=== PATIENT | female | born 1995 | race Caucasian/White ===

== ENCOUNTER → 2018-04-19 09:07 | Outpatient (CLI) | payer OTHER, MEDICAID, SELFPAY ==
[2018-03-07 15:01] VITALS: BMI 23.3
[2018-04-19 10:24] LABS: hCG Titer Quant., Serum 834 mIU/mL (<9 non-preg)
== END ==
PROVIDERS: Referring Provider Obstetrics & Gynecology; Visit Provider Obstetrics & Gynecology
DX: O20.0 Threatened abortion (principal)
CPT/HCPCS: 36415; 84702; 86850; 86900

== ENCOUNTER → 2018-04-20 12:24 | Outpatient (CLI) | payer OTHER, MEDICAID, SELFPAY ==
[2018-03-07 15:01] VITALS: BMI 23.3
[2018-04-20 13:45] LABS: hCG Titer Quant., Serum 1250 mIU/mL (<9 non-preg)
== END ==
PROVIDERS: Referring Provider Obstetrics & Gynecology; Visit Provider Obstetrics & Gynecology
DX: O20.0 Threatened abortion (principal)
CPT/HCPCS: 36415; 84702

== ENCOUNTER 2018-04-22 10:03 | Emergency (ER) | payer OTHER, MEDICAID, SELFPAY ==
[2018-03-07 15:01] VITALS: BMI 23.3
[2018-04-22 10:04] VITALS: BP 133/75; PULSE 107; RESP 15; TEMP 36.2; O2SAT 100; BMI 26.4
--- NOTE | 2018-04-22 10:17 | US_ITS ---
STUDY: FIRST TRIMESTER OBSTETRICAL ULTRASOUND REASON FOR EXAM: Female, 23 years old. Bleeding. LMP: Unknown. TECHNIQUE: Transvaginal TECHNICAL QUALITY: Adequate. PRIOR ULTRASOUND: None. FINDINGS: There is visualization of a single gestational sac in a normal intrauterine position. The mean sac diameter (MSD) measures 0.5 cm, indicating an estimated gestational age (EGA) of 5 weeks, 0 days. The gestational sac shape is within normal limits. There is a visualized yolk sac. The yolk sac measures 0.2 cm. The placenta is non-visualized. There is no demonstrated embryo ( pole). The estimated gestation age (EGA) by US is less than 5 weeks, 0 days. The uterus measures 6.9 x 4.4 x 3.6 cm. There is no demonstrated uterine fibroid. The cervix is closed. The right ovary measures 3.0 x 2.6 x 1.8 cm. There are multiple follicles of the right ovary without a dominant cyst. There is no visualized right adnexal mass or complex lesion. The left ovary measures 2.2 x 1.8 x 1.7 cm. There are multiple follicles of the left ovary without a dominant cyst. There is no visualized left adnexal mass or complex lesion. There is no fluid in the cul de sac. US/Transvaginal w/Preg US IMPRESSION: Intrauterine gestational sac with yolk sac. There is no pole nor cardiac activity. Electronically Signed: Michael Gordon MD at 12:51 EST , Service support ,
--- NOTE | 2018-04-22 10:19 | ED.VISSUMM ---
- ER Visit Summary Date of Service: 04/22/18 Chief Complaint: Bleeding in History of Present Illness: The patient is a 23 F who presents the emergency room bleeding. She tells me that last week she had. She thought it was a regular. But on Wednesday she took a test. At that time her bleeding had stopped. Her bleeding returned on Wednesday she states and she went to [facility] where she had a hCG level of [address] Philippe's office and had a repeat hCG level on Wednesday. She states that her bleeding had resolved from the Wednesday episode but has now returned today and is heavier with clots. Ab0. Physical Examination: Afebrile vital signs are stable Gen: Well-nourished well-developed Head: Normocephalic atraumatic Eyes: Perrl EOMI ENT: TMs clear no rhinorrhea moist mucous membranes Neck: Supple no lymphadenopathy no JVD nontender CVS: Regular rate rhythm no murmurs normal S1-S2 Respiratory: No distress clear to auscultation bilaterally chest nontender Abdomen: Soft nontender nondistended normal bowel sounds no masses Back: Nontender Extremity: Nontender no edema Skin: Normal color no rash Neuro: alert orientated ?3 CN II-XII intact normal strength sensation reflexes gait cerebellar Psych: Normal affect normal mood Test Results: Patient is a positive. Quantitative hCG is 2500. Pelvic ultrasound demonstrates a gestational sac. Emergency Department Course and Treatment: I reviewed the workup evaluation with her SUPERVISOR DRAPERY HANGING Dr. Philippe. Patient will be discharged home to have follow-up return if worsening or concerns. Impression: 1. Threatened miscarriage This note was generated with BitInstant dictation software. It may contain incorrect words, spelling, and punctuation that were not noted in review of the chart prior to signing ED Disposition - Plan for ED Patient: Disposition: Home or Assisted Living Instructions: ED Miscarriage Poss Referrals: Tisha Philippe MD [STAFF PHYSICIAN] -
[2018-04-22 10:47] LABS: Hematocrit 39.9 % (37-47)
[2018-04-22 11:39] LABS: hCG Titer Quant., Serum 2500 mIU/mL (<9 non-preg)
--- NOTE | 2018-04-22 13:15 | NURSING ---
DR REMA DE LA PAZ
[2018-04-22 13:43] VITALS: BP 115/72; RESP 14
== END 2018-04-22 13:45 | disposition home or self-care (01) ==
PROVIDERS: Emergency Provider Emergency Medicine
DX: O20.0 Threatened abortion (principal)
CPT/HCPCS: 76817; 84702; 85014; 85018; 86900; 86901; 99283

== ENCOUNTER → 2018-05-17 13:25 | Outpatient (CLI) | payer OTHER, MEDICAID, SELFPAY ==
[2018-05-17 13:21] VITALS: BMI 26.4
[2018-05-17 14:05] LABS: Absolute Lymphocyte Count 1.47 X10^3/ul (0.83-4.51); Absolute Neutrophil Count 6.1 X10^3/uL (2.0-7.7); Basophil# 0.01 X10^3/uL; Basophil% 0.1 % (0-1); Eosinophil# 0.16 X10^3/uL; Eosinophils% 1.9 % (0-5); Hematocrit 40.1 % (37-47); Hemoglobin 13.5 g/dl (12.0-15.0); Lymphocyte # 1.47 X10^3/ul (4.0); Lymphocyte % 17.4 % (19-41); Mean Corp Hgb Conc 33.7 g/gl (32-36); Mean Corpuscular Hgb 29.3 pg (27.0-32.0); Mean Platelet Vol. 8.8 fl (6.2-12.0); Monocyte# 0.69 X10^3/uL; Monocyte% 8.2 % (0-10); Neutrophil # 6.09 X10^3/uL (2.7-7.7); Neutrophil % 72.3 % (47-70); Platelet Count 309 K/mm3 (150-450); RBC Distribution Width CV 12.9 % (11.6-14.6); RBC Distribution Width SD 39.9 fl (35.1-43.9); Red Blood Count 4.61 M/mm3 (4.2-5.4); White Blood Count 8.4 K/mm3 (4.4-11.0)
[2018-05-17 14:08] LABS: POSITIVE COUNT NO; POSITIVE DIFFERENTIAL NO; POSITIVE MORPHOLOGY NO
[2018-05-17 15:16] LABS: HIV - WCH Non-Reactive (Nonreactive); Rubella IgG 139.3 IU/mL
[2018-05-17 19:10] LABS: Chlamydia Trachomatis by PCR Negative (Negative); Neisserai gonorrhoeae by PCR Negative (Negative); Probe Check PASS; Sample Adequacy Control PASS; Specimen Processing Control PASS
[2018-05-18 11:48] LABS: HEPATITIS B SURFACE AG Negative (Negative)
[2018-05-20 01:30] LABS: Rapid Plasmin Reagin (RPR) NONREACTIVE (NONREACTIVE)
[2018-05-23 12:10] LABS: HPV Reflexed? NOT INDICATED
== END ==
PROVIDERS: Referring Provider Obstetrics & Gynecology; Visit Provider Obstetrics & Gynecology
DX: Z34.90 Encounter for supervision of normal pregnancy, unspecified, unspecified trimester (principal); Z12.4 Encounter for screening for malignant neoplasm of cervix
CPT/HCPCS: 36415; 85025; 86592; 86703; 86762; 86850; 86900; 87086; 87088; 87340; 87491; 87591; 87624; 88175; G0145

== ENCOUNTER → 2018-05-25 11:18 | Outpatient (CLI) | payer OTHER, MEDICAID, SELFPAY ==
[2018-05-17 13:21] VITALS: BMI 26.4
== END ==
PROVIDERS: Visit Provider Obstetrics & Gynecology
DX: Z34.81 Encounter for supervision of other normal pregnancy, first trimester (principal)

== ENCOUNTER → 2018-06-21 | Outpatient (CLI) | payer OTHER, MEDICAID, SELFPAY ==
[2018-06-15 08:36] VITALS: BMI 26.4
== END | disposition home or self-care (01) ==
PROVIDERS: Referring Provider Nurse Practitioner Women's Health; Visit Provider Nurse Practitioner Women's Health
DX: N39.0 Urinary tract infection, site not specified (principal)
CPT/HCPCS: 87086

== ENCOUNTER → 2018-08-04 12:32 | Outpatient (CLI) | payer MEDICAID, SELFPAY ==
[2018-08-04 12:30] VITALS: BMI 26.4
[2018-08-04 12:59] LABS: ROM Internal Control Test YES-OK TO RESULT pt. (Internal QC); ROM Patient Test Negative (Negative)
== END ==
PROVIDERS: Referring Provider Obstetrics & Gynecology; Visit Provider Obstetrics & Gynecology
DX: N89.8 Other specified noninflammatory disorders of vagina (principal)
CPT/HCPCS: 84112

== ENCOUNTER 2018-08-27 09:35 | Outpatient (CLI) | payer OTHER, MEDICAID, SELFPAY ==
[2018-08-10 10:40] VITALS: BMI 26.4
[2018-08-27 09:55] VITALS: BMI 27.0
--- NOTE | 2018-08-28 07:34 | OB.TRI.PN ---
Progress Notes Date of Service: 08/28/18 Progress Note: decreased movememnt fht 150s feeling movment now dc home reassuring status
== END 2018-08-27 10:35 | disposition home or self-care (01) ==
LOC: WPOUT 09:42 → WP 09:43
PROVIDERS: Referring Provider Obstetrics & Gynecology; Visit Provider Obstetrics & Gynecology
DX: O36.8190 Decreased fetal movements, unspecified trimester, not applicable or unspecified (principal)
CPT/HCPCS: 59050; 99218; G0378

== ENCOUNTER → 2018-09-28 11:27 | Outpatient (CLI) | payer OTHER, MEDICAID, SELFPAY ==
[2018-09-28 10:52] VITALS: BMI 27.0
[2018-09-28 12:02] LABS: Absolute Lymphocyte Count 1.43 X10^3/uL (0.83-4.51); Absolute Neutrophil Count 7.5 X10^3/uL (2.0-7.7); Basophil# 0.04 X10^3/uL; Basophil% 0.4 % (0-1); Eosinophil# 0.11 X10^3/uL; Eosinophils% 1.1 % (0-5); Hematocrit 32.5 % (37-47); Hemoglobin 10.8 g/dL (12.0-15.0); Lymphocyte # 1.43 X10^3/ul (4.0); Lymphocyte % 14.4 % (19-41); Mean Corp Hgb Conc 33.2 g/dL (32-36); Mean Corpuscular Hgb 29.9 pg (27.0-32.0); Monocyte# 0.76 X10^3/uL; Monocyte% 7.7 % (0-10); NRBC Flagged by Analyzer 0 % (0-5); Neutrophil # 7.52 X10^3/uL (2.7-7.7); Neutrophil % 75.7 % (47-70); Platelet Count 237 K/mm3 (150-450); RBC Distribution Width CV 13.8 % (11.6-14.6); Red Blood Count 3.61 M/mm3 (4.2-5.4); White Blood Count 9.9 K/mm3 (4.4-11.0)
[2018-09-28 12:21] LABS: Glucose Challenge Gest 1H 50g 72 mg/dL (70-140)
== END ==
PROVIDERS: Referring Provider Obstetrics & Gynecology; Visit Provider Obstetrics & Gynecology
DX: Z34.93 Encounter for supervision of normal pregnancy, unspecified, third trimester (principal); Z3A.28 28 weeks gestation of pregnancy
CPT/HCPCS: 36415; 82950; 85025

== ENCOUNTER 2018-10-19 18:55 | Outpatient (CLI) | payer OTHER, MEDICAID, SELFPAY ==
[2018-10-12 10:50] VITALS: BMI 27.0
[2018-10-19 19:10] VITALS: BMI 28.8
[2018-10-19 19:54] LABS: ROM Internal Control Test YES-OK TO RESULT pt. (Internal QC); ROM Patient Test Negative (Negative)
--- NOTE | 2018-10-19 21:40 | OB.TRI.PN_ITS ---
Progress Notes Date of Service: 10/19/18 Progress Note: false labor negative rom plus fht 140 moderate variability reactive no decelerations category I tracing [place]: irregular cervix closed a/p false labor dc home cat I tracing reactive nst Laboratory Studies: Laboratory Tests 10/19/18 Range/Units 19:15 Vag Amniotic Fld Detect Negative (Negative) - Problem List (1) False labor Status: Acute Comment: 10/19- neg rom plus cervix closed Multi Select Codes - Urinary/Genital Urinary/Genital CPT Codes: 51999-13 non-stress test Interp
== END 2018-10-19 20:35 | disposition home or self-care (01) ==
LOC: WPOUT 19:02 → WP 19:03
PROVIDERS: Referring Provider Obstetrics & Gynecology; Visit Provider Obstetrics & Gynecology
DX: O47.9 False labor, unspecified (principal); Z3A.00 Weeks of gestation of pregnancy not specified
CPT/HCPCS: 59025; 59050; 84112; 99218; G0378

== ENCOUNTER 2018-11-13 10:08 | Outpatient (CLI) | payer OTHER, MEDICAID, SELFPAY ==
[2018-11-08 10:57] VITALS: BMI 28.8
[2018-11-13 10:18] VITALS: BMI 29.7
[2018-11-13 10:53] LABS: ROM Internal Control Test YES-OK TO RESULT pt. (Internal QC); ROM Patient Test Negative (Negative); Record Kit Lot#, ROM+ J8255
--- NOTE | 2018-11-13 12:21 | OB.TRI.PN ---
Progress Notes Date of Service: 11/13/18 Progress Note: Patient presents for triage evaluation secondary to questionable loss of fluid and some contractions FHT: 130 Moderate variability reactive no decelerations category I tracing [place]: no regular Contractions Assessment and plan: labor reactive NST, reassuring maternal and status patient discharged to home to follow-up in office. See problem list details for additional plan information. Laboratory Studies: Laboratory Tests 11/13/18 Range/Units 10:20 Vag Amniotic Fld Detect Negative (Negative) - Problem List (1) Threatened labor Status: Acute Multi Select Codes - Urinary/Genital Urinary/Genital CPT Codes: 64280-87 non-stress test Interp
== END 2018-11-13 11:15 | disposition home or self-care (01) ==
LOC: WPOUT 10:12 → WP 10:15
PROVIDERS: Referring Provider Obstetrics & Gynecology; Visit Provider Obstetrics & Gynecology
DX: O60.03 Preterm labor without delivery, third trimester (principal); Z3A.00 Weeks of gestation of pregnancy not specified
CPT/HCPCS: 59025; 59050; 84112; 99218; G0378

== ENCOUNTER → 2018-11-23 | Outpatient (CLI) | payer MEDICAID, SELFPAY ==
[2018-11-23 09:05] VITALS: BMI 29.7
== END | disposition home or self-care (01) ==
PROVIDERS: Referring Provider Obstetrics & Gynecology; Visit Provider Obstetrics & Gynecology
DX: Z34.93 Encounter for supervision of normal pregnancy, unspecified, third trimester (principal); Z3A.36 36 weeks gestation of pregnancy
CPT/HCPCS: 87077; 87081; 87186

== ENCOUNTER → 2018-11-30 | Outpatient (CLI) | payer OTHER, MEDICAID, SELFPAY ==
[2018-11-30 10:29] VITALS: BMI 29.7
[2018-11-30 11:29] LABS: ROM Internal Control Test YES-OK TO RESULT pt. (Internal QC); ROM Patient Test Negative (Negative); Record Kit Lot#, ROM+ J8255
== END | disposition home or self-care (01) ==
LOC: LABSPEC 11:05
PROVIDERS: Visit Provider Nurse Practitioner Women's Health
DX: N89.8 Other specified noninflammatory disorders of vagina (principal)
CPT/HCPCS: 84112

== ENCOUNTER 2018-12-07 20:00 | Outpatient (CLI) | payer MEDICAID, SELFPAY ==
[2018-12-05 16:04] VITALS: BMI 29.7
[2018-12-07 20:56] VITALS: BMI 30.7
[2018-12-07 21:35] VITALS: RESP 18
--- NOTE | 2018-12-08 05:06 | OB.TRI.NOTE ---
History of Present Illness Date of Service: 12/07/18 Was patient seen by the physician?: Yes Reason For Visit: Decreased movement Date of Service: 12/07/18 Final DELANEY: 12/21/18 Final DELANEY Source: US <20 weeks Gestational age: 38 Weeks and 0 Days History of Present Illness: 23 yo female presents for CC of dec movement for NST. Active baby noted as she begins the NST and she is now aware of movement. Allergies Penicillins Allergy (Verified 12/07/18 20:57) Hives Physical Exam Vitals: Vital Signs Resp 18 12/07/18 21:35 General: Alert, Oriented x3, Cooperative, No apparent distress HEENT: Atraumatic, EOMI Abdomen: Soft, Gravid NST - FHR Rate Baby A Baseline: 140-150s to accels up to 180-190 avg variability Variability:: Moderate Accelerations:: 15 x 15 Decelerations:: None NST Reactive:: Yes, Appropriate for gestational age FHR Category:: Category I Uterine Activity:: Irreg UCs Impression/Plan 38 wk decreased movement. NST reactive and active movement now noted. Home after NST Keep ofc appt as planned.
== END 2018-12-07 21:35 | disposition home or self-care (01) ==
LOC: WPOUT 20:08 → WP 20:08
PROVIDERS: Visit Provider Obstetrics & Gynecology
DX: O36.8130 Decreased fetal movements, third trimester, not applicable or unspecified (principal); Z3A.38 38 weeks gestation of pregnancy
CPT/HCPCS: 59025; 59050; 99218; G0378

== ENCOUNTER 2018-12-22 04:47 | Inpatient (IN) | payer OTHER, MEDICAID, SELFPAY ==
[2018-12-13 15:36] VITALS: BMI 30.7
[2018-12-22 05:13] VITALS: BMI 31.4
[2018-12-22] MEDS: Lactated Ringers 1,000 ML 50 ML IV (05:15)
[2018-12-22] MEDS: Lactated Ringers 500 ML 999 ML IV (05:15)
[2018-12-22 05:29] LABS: Absolute Lymphocyte Count 2.23 X10^3/uL (0.83-4.51); Absolute Neutrophil Count 7.5 X10^3/uL (2.0-7.7); Basophil# 0.06 X10^3/uL; Basophil% 0.5 % (0-1); Eosinophil# 0.12 X10^3/uL; Eosinophils% 1.1 % (0-5); Hematocrit 33.6 % (37-47); Lymphocyte # 2.23 X10^3/ul (4.0); Lymphocyte % 20.4 % (19-41); Mean Corp Hgb Conc 32.7 g/dL (32-36); Mean Corpuscular Hgb 28.4 pg (27.0-32.0); Mean Corpuscular Volume 86.8 fL (81-99); Mean Platelet Vol. 9.2 fl (6.2-12.0); Monocyte# 0.96 X10^3/uL; Monocyte% 8.8 % (0-10); NRBC Flagged by Analyzer 0 % (0-5); Neutrophil # 7.47 X10^3/uL (2.7-7.7); Neutrophil % 68.3 % (47-70); Platelet Count 211 K/mm3 (150-450); RBC Distribution Width CV 14.1 % (11.6-14.6); RBC Distribution Width SD 44.3 fl (35.1-43.9); Red Blood Count 3.87 M/mm3 (4.2-5.4); White Blood Count 10.9 K/mm3 (4.4-11.0)
[2018-12-22] MEDS: Oxytocin 30 units/NS 500 ml 30 UNITS/500 ML IV.SOLN 334 UNITS IV (06:38)
[2018-12-22] MEDS: Methylergonovine 0.2 MG/ML Ampul IM (06:41)
[2018-12-22] MEDS: Ibuprofen 600 MG Tablet PO (13:08)
[2018-12-22 13:15] VITALS: BP 113/63; PULSE 72; RESP 16; TEMP 36.1
[2018-12-22 13:23] VITALS: PULSE 72; RESP 16
--- NOTE | 2018-12-22 13:43 | NURSING ---
charting by CF, N reviewed. nurse in room while assessment was done and agreed upon with patient care nursing assistant.
[2018-12-22 16:35] VITALS: BP 111/55; PULSE 75; RESP 12; TEMP 36.1
[2018-12-22 19:17] VITALS: BP 129/66; PULSE 85; RESP 16; TEMP 36.1; O2SAT 99
[2018-12-22] MEDS: Acetaminophen 500 MG Tablet 1000 MG PO (20:11)
[2018-12-22 23:45] VITALS: BP 117/58; PULSE 90; RESP 16; TEMP 36.3
[2018-12-23 04:40] VITALS: BP 119/68; PULSE 81; RESP 16; TEMP 36.4; O2SAT 99
[2018-12-23] MEDS: Senna/Docusate Sodium 1 Tablet PO (04:40)
[2018-12-23] MEDS: Ibuprofen 600 MG Tablet PO (04:40)
[2018-12-23 07:50] VITALS: BP 114/57; PULSE 72; RESP 16; TEMP 36.4
--- NOTE | 2018-12-23 10:50 | CASEMGMT ---
Social Work Assessment Labor and Delivery Unit Date of Referral: 12.22.2018 Time of Referral: 2115 Referred By: Dr. De La Rosa Date of Intervention: 12.23.2018 Time of Intervention: 1049 Reason for Referral: maternal history of anxiety History obtained from: medical records, mother of baby (MOB) Hali Fiore, and father of baby (FOB) Murphy Fiore. Household composition: MOB, FOB, and children live in a trailer they rent from a cousin. Home situation is safe and adequate. Patient's parent/guardian status: MOB age 23 is marred to FOB and now the couple have two children. Minor children include Stephanie (born 11.20.2018) and baby Bernie (born 12.22.2018). Did speak privately with MOB and MOB denies any form of abuse in relationship with FOB. No safety concerns at home. Medical History: MOB is G2, P1 to 2 after delivering Bernie. care starting at 13 weeks and adequate thereafter. MOB breastfed older children until 7 months into this . Baby Bernie was born weighing 8 pounds 10 ounces. 8 and 9 at 1 and 5 minutes of life. Educational Status: MOB graduated high school. Currently enrolled in online school for a bachelor?s in psychology with only a year and a half left. No issues reading, writing, or with learning comprehension. Financial Status: JIMMY works fulltime as a [employer]. Supplies: MOB reports to have needed supplies including pack-n-play, car seat, clothing, diapers, wipes, is breast feeding and has a pump. Childcare/Caregiver(s): MOB with help from FOB and family. Transportation: No issues. Programs/Agencies Involved: Medicaid through [employer]. Verbally agrees to Help Me Grow referral. Children Services/Legal Issues: No past or present history. Behavioral Health Issues: Mental Health History: MOB reports history of anxiety after of Stephanie. MOB was treated with Zoloft for a short time and this seemed to help. MOB denies any history of suicidal ideation, planning, intent, or attempt. Substance Use History: MOB denies any history of substance use issues. No tobacco use. Family History: No maternal family history reported. JIMMY endorses having some anxiety himself. Drug Screens: No screening noted during care or at delivery. Family/Social Stressors: Both MOB and FOB are in enrolled in online college at this time. Maternal and paternal histories of anxiety, though through discussion both seem self-aware of their anxiety and are supportive to each other. Support Systems: MOB reports FOB is a good support. Both sets of parents are supportive, and MOB identifies her [id number] as one of the biggest supports to MOB. Depression/Shaken Baby/Safe Sleeping: Information given on shaken baby prevention and safe sleeping. Educated to mood and anxiety disorders, risk factors present and importance of seeking out help and support should symptoms surface. Educated to treatment options of medication and counseling, as well as to some online chats for both mothers and fathers. ASSESSMENT: Met with MOB and FOB together and then with MOB alone near the end where an [place] Depression Screen was administered. Score was a 2, not indicative of current depression. During private time, MOB denies any form of abuse in relationship with FOB and reports that FOB is a good support to MOB. MOB and FOB both talkative, engaged in conversation with marriage and family social worker, and appearing interested in topics discussed. Both parents agreeable to having a Help Me Grow referral for added support. Report to have needed supplies and adequate support from the family. MOB reports understanding of importance of letting others know should MOB start to experience depression or anxiety in this period. MOB has history of treatment with Zoloft in the past and aware that this would be an option again. No voiced concerns by nursing staff regarding mother/child bonding or interactions. MOB attentive to baby during social work visit; held , was gentle, smiled and gazed at baby. MOB reports to feel she is bonding with baby and is excited. PLAN: MOB and baby to home when ready for discharge. Resources for home gong have been given including a general [facility] resources list, depression packet, information on shaken baby prevention, safe sleeping. Help Me Grow referral to be made. No other services requested or indicated. -HARPER Irving, LABOR RELATIONS DIRECTOR
[2018-12-23 13:50] VITALS: BP 118/56; PULSE 87; RESP 16; TEMP 36.4
[2018-12-23 20:00] VITALS: BP 132/83; PULSE 104; RESP 16; TEMP 36.5
[2018-12-23] MEDS: Acetaminophen 500 MG Tablet 1000 MG PO (20:59)
[2018-12-24 01:49] VITALS: BP 127/77; PULSE 77; RESP 16; TEMP 36.4
--- NOTE | 2018-12-24 04:25 | PCM.PN.OB ---
Subjective: doing well no complaints pain controlled no CP SOB N V ambulating well tolerating po lochia moderate, going well - Physical Exam Vitals/I&O's: Vital Signs Temp Pulse Resp BP Pulse Ox 97.5 F L 77 16 127/77 H 99 12/24/18 01:49 12/24/18 01:49 12/24/18 01:49 12/24/18 01:49 12/23/18 04:40 Oxygen Delivery Method Room Air Weight: 189 lb Body Mass Index (BMI) 31.4 Intake and Output for Last 24 Hours 12/22/18 12/23/18 12/24/18 23:59 23:59 23:59 Intake Total 1130.83 / 1130.83 Output Total 900 / 900 Balance 230.83 / 230.83 General: Alert, Oriented x3 Current Medications Acetaminophen (Tylenol) 1,000 mg PO Q8H PRN PRN PRN Reason: Pain Score 1-3 Last Admin: 12/23/18 20:59 Dose: 1,000 mg Documented by: Bisacodyl (Dulcolax) 10 mg RECTAL UD PRN PRN Reason: If no BM Citric Acid/Sodium Citrate (Bicitra) 30 ml PO X1 PRN PRN Reason: Section Dibucaine (Dibucaine) 1 applic TOPICAL TID PRN PRN; Protocol PRN Reason: Discomfort Hydrocortisone (Hytone) 1 applic TOPICAL TID PRN PRN; Protocol PRN Reason: Discomfort Lactated Ringer's () 500 mls @ 999 mls/hr IV .Q31M PRN PRN Reason: Epidural Last Infusion: 12/22/18 05:46 Dose: Infused Documented by: Ibuprofen (Motrin) 600 mg PO Q6H PRN PRN PRN Reason: Pain Score 1-3 Last Admin: 12/23/18 04:40 Dose: 600 mg Documented by: Methylergonovine Maleate (Methergine) 0.2 mg IM X1 PRN PRN Reason: Excess bleeding/uterine atony Last Admin: 12/22/18 06:41 Dose: 0.2 mg Documented by: Ondansetron HCl (Zofran) 4 mg IV Q4H PRN PRN PRN Reason: Nausea Senna/Docusate Sodium (Senokot-S, Ivette-Colace) 1 - 2 tablet PO DAILY PRN PRN PRN Reason: Constipation Last Admin: 12/23/18 04:40 Dose: 1 tablet Documented by: Simethicone (Mylicon) 80 mg PO HS PRN PRN Reason: Indigestion/Stomach pain Sodium Chloride () 5 - 15 ml IV UD PRN PRN Reason: SALINE FLUSH Medical Necessity - Tobacco Use Smoking Status: Never smoker Assessment/Plan All Active Problems (Last Reviewed 12/13/18 @ 15:35 by María Lopez) GBS (group B Streptococcus carrier), +RV culture, currently (Acute) General counseling and advice on contraceptive management (Acute) False labor (Acute) Iron (Fe) deficiency anemia (Acute) Low lying placenta nos or without hemorrhage, first trimester (Acute) History of oligohydramnios (Acute) Low grade squamous intraepithelial lesion (LGSIL) (Acute) (Acute) Supervision of normal (Acute) Genetic testing (Resolved) Threatened labor (Resolved) s/p PPD # 2 1. routine post delivery care 2. breast feeding- support given 3. rh positive 4. rubella immune
--- NOTE | 2018-12-24 04:26 | HP.PCM_ITS ---
- Problem List (1) GBS (group B Streptococcus carrier), +RV culture, currently Status: Acute (2) General counseling and advice on contraceptive management Status: Acute Comment: IUD 6 wk pp (3) History of oligohydramnios Status: Acute Comment: growth US 36 weeks (4) Iron (Fe) deficiency anemia Status: Acute Qualifiers: (5) Low grade squamous intraepithelial lesion (LGSIL) Status: Acute Comment: repeat pap in 1 year (6) Low lying placenta nos or without hemorrhage, first trimester Status: Acute Comment: resolved (7) Status: Acute Qualifiers: Comment: nipt screening- low risk gender reveal, declined carrier and ntd screening. normal anatomy (8) Supervision of normal Status: Acute Qualifiers: Comment: PRR DELANEY 12/21/18 girl PC Stephanie Stephen History Date of Admission: 11/19/16 Final DELANEY: 12/21/18 Final DELANEY Source: US <20 weeks Gestational age: 40 Weeks and 1 Days History of this : This is a 23 year-old, G 2P0 at 40 weeks gestational age presents IAL 6 cm dilated and delivered within an hour of presentation. she dneies any vb or lof admits good fm Allergies Penicillins Allergy (Verified 12/22/18 05:14) Hives Home Medications: Home Medications vitamin#30 30 mg iron-10 mg iron-folic acid 1 mg-omg3 capsule 1 tab PO DAILY cap 05/17/18 Smoking Status: Never smoker NST - FHR Rate Baby A Baseline: 130 Variability:: Moderate Accelerations:: 15 x 15 Decelerations:: None NST Reactive:: Yes FHR Category:: Category I Uterine Activity:: q2-4 History Past Pregnancies: Past Pregnancies previous term oligo IOL Labs: Mom's Labs & Results 12/22/18 12/22/18 05:15 05:15 WBC 10.9 RBC 3.87 L Hgb 11.0 L Hct 33.6 L MCV 86.8 MCH 28.4 MCHC 32.7 RDW Std Deviation 44.3 H RDW Coeff of Deborah 14.1 Plt Count 211 MPV 9.2 Immature Gran % (Auto) 0.900 Neut % (Auto) 68.3 Lymph % (Auto) 20.4 [place] % (Auto) 8.8 Eos % (Auto) 1.1 Baso % (Auto) 0.5 Absolute Neuts (auto) 7.5 Absolute Lymphs (auto) 2.23 Nucleated RBC % 0 Blood Type A POSITIVE Antibody Screen NEGATIVE Course Did the patient receive Yes care? Labs Blood Type: A RH: POSITIVE RPR/VDRL/Syphilis Nonreactive Rubella status Immune HbSAg Negative Date Done: 05/17/18 Chlamydia Negative Gonorrhea Negative HIV/AIDS Non-Reactive Group B Strep: Positive Current Obstetrical History Gestational Diabetes No Incompetent Cervix No Infertility No IUGR No Macrosomia No Hypertension/Pre-eclampsia No Placenta Previa/Abruption No PTL/PROM No Uterine anomaly No Oligohydramnios No Polyhydramnios No Multiple gestation No Past Medical History Asthma Yes: inhaler PRN Diabetes No Hypertension No Heart disease No Mitral valve prolapse No Neurologic/Seizure disorder/ No Migraines Kidney disease No Liver disease No Varicosities No Clotting disorders/Hx of DVT No Thyroid Dysfunction No Other medical diseases No Psychiatric disorders No Major trauma No Abnormal PAP smear No Sleep apnea No Mammogram in the last 2 years No Social History Marital Status: Alleged father rao Hx Smoking No Smoking Status Never smoker How long have you used n/a substances (years)? Expected Infant Delivery Method: Spontaneous Vaginal Review of Systems Constitutional: Denies: Fever, Malaise Eyes: Denies: Blurred vision, Vision Change HEENT: Denies: Head Aches, Visual Changes Cardiovascular: Denies: Chest Pain, Palpitations Respiratory: Denies: Cough, Shortness of Breath, Wheezing Gastrointestinal: Denies: Abdominal Pain, Diarrhea, Nausea, Vomiting Genitourinary: Denies: Dysuria, Hematuria Musculoskeletal: Denies: Joint Pain, Muscle pain Skin: Denies: Lesions, Rash Neurological: Denies: Blurred vision, Focal weakness, Headaches Psychiatric: Denies: Anxiety, Depression Endocrine: Denies: Heat/ Cold Intolerance Hematologic/ Lymphatic: Denies: Easy Bruising, Easy Bleeding Physical Exam Vitals: Vital Signs Temp Pulse Resp BP Pulse Ox 97.5 F L 77 16 127/77 H 99 12/24/18 01:49 12/24/18 01:49 12/24/18 01:49 12/24/18 01:49 12/23/18 04:40 General: Alert, Cooperative, No apparent distress HEENT: Atraumatic, Normocephalic. Negative for: Thyromegaly, Lymphadenopathy Cardiovascular: Regular rate Lungs: Normal air movement Abdomen: Soft, Non Tender, Gravid Neurological: Deep Tendon Reflexes 2+/4 and Symmetrical, Neuro grossly intact. Negative for: Clonus SANITARIAN INSPECTOR: Normal external genitalia. Negative for: Vulvar lesions Estimated gestational size: Appropriate for gestational size Presentation: Cephalic Assessment/Plan All Active Problems (Last Reviewed 12/13/18 @ 15:35 by María Lopez) GBS (group B Streptococcus carrier), +RV culture, currently (Acute) General counseling and advice on contraceptive management (Acute) False labor (Acute) Iron (Fe) deficiency anemia (Acute) Low lying placenta nos or without hemorrhage, first trimester (Acute) History of oligohydramnios (Acute) Low grade squamous intraepithelial lesion (LGSIL) (Acute) (Acute) Supervision of normal (Acute) Genetic testing (Resolved) Threatened labor (Resolved) ial 40 weeks delivered within an hour of presentation uncomplicated
--- NOTE | 2018-12-24 04:28 | PCM.OPRPT ---
Problem List (1) GBS (group B Streptococcus carrier), +RV culture, currently Status: Acute (2) General counseling and advice on contraceptive management Status: Acute Comment: IUD 6 wk pp (3) History of oligohydramnios Status: Acute Comment: growth US 36 weeks (4) Iron (Fe) deficiency anemia Status: Acute Qualifiers: (5) Low grade squamous intraepithelial lesion (LGSIL) Status: Acute Comment: repeat pap in 1 year (6) Low lying placenta nos or without hemorrhage, first trimester Status: Acute Comment: resolved (7) Status: Acute Qualifiers: Comment: nipt screening- low risk gender reveal, declined carrier and ntd screening. normal anatomy (8) Supervision of normal Status: Acute Qualifiers: Comment: PRR DELANEY 12/21/18 girl LUI Brown Stephen Vaginal Delivery Maternal Presentation: Active Labor ial precipitous delivery 40 weeks Amniotic Membrane Rupture Type: Artificial Amniotic Fluid Description: Clear Final DELANEY: 12/21/18 Gestational age: 40 Weeks and 1 Days Date of Procedure: 12/22/18 Pre-Operative Diagnosis: ial Post-Operative Diagnosis: same Surgery/ Procedure Performed: Spontaneous Vaginal Delivery Type of Anesthesia: None Description of Procedure: precipitous uncomplicated delayed cord clamping mild atony 400 EBL Presentation: IBIS Placental Delivery Description: Spontaneous Placenta Disposition: [facility] Cord Vessel Description: 3 Vessels Cord Entanglement: None Estimated Blood Loss: 400 A gender: Female Episiotomy Description: None Laceration: None Medications given after delivery: IV Pitocin Complications: None Multi Select Codes - Urinary/Genital Urinary/Genital CPT Codes: 08022 Vaginal Delivery [facility]
--- NOTE | 2018-12-24 04:31 | DCINST_ITS ---
Discharge Diet: No Restrictions Discharge Activity: Return to Normal Activity, May not drive while taking narcotic pain medications., May Shower May resume sexual activity in: 4-6 weeks Call your doctor if your incision/area has: Continuous Slow Oozing, Sudden Increased Bleeding, Increased Pain/ Swelling, Increased Redness, Foul Smelling Discharge Additional Instructions: If you experience any of the following, contact your healthcare provider. * Bleeding that soaks a pad every hour for 2 hours * Fever 100.4 or higher * Unrelieved incision or abdominal pain * Swelling, redness, discharge or bleeding from your incision or episiotomy site * Your incision begins to separate * Problems urinating (including inability to urinate or burning while urinating). * Visual changes * Severe headache * Flu-like symptoms * Pain or redness in one of both of your breasts * Pain, warmth, tenderness or swelling in your legs, especially the calf area * Frequent nausea and vomiting * Symptoms of depression or anxiety If you experience any of the following, call 911 or go to the nearest Emergency Room. * Chest pain * Problems breathing * Seizure activity * Partial or complete paralysis of a body part, slurred speech, weakness or drooping of the face, or a sudden inability to walk or hold your balance Allergies/Adverse Reactions: Allergies Penicillins Allergy (Verified 12/22/18 05:14) Hives Medications to take at Discharge vitamin#30 30 mg iron-10 mg iron-folic acid 1 mg-omg3 capsule 1 tab PO DAILY cap 05/17/18 Please Follow Up With: Tisha Philippe MD - [phone] When: Call to make an appointment with your doctor in 6 weeks. If you had elevated Blood pressure or 4th degree laceration you will need to be seen in 2 weeks. Primary Care Physician: Care Physician,No Primary [Primary Care Provider] - Test Results: Test results from this visit will be discussed in further detail at your follow- up appointment, if applicable.
--- NOTE | 2018-12-24 04:31 | PCM.DCVAG ---
Discharge Diet: No Restrictions Discharge Activity: Return to Normal Activity, May not drive while taking narcotic pain medications., May Shower May resume sexual activity in: 4-6 weeks Call your doctor if your incision/area has: Continuous Slow Oozing, Sudden Increased Bleeding, Increased Pain/ Swelling, Increased Redness, Foul Smelling Discharge Additional Instructions: If you experience any of the following, contact your healthcare provider. Bleeding that soaks a pad every hour for 2 hours Fever 100.4 or higher Unrelieved incision or abdominal pain Swelling, redness, discharge or bleeding from your incision or episiotomy site Your incision begins to separate Problems urinating (including inability to urinate or burning while urinating). Visual changes Severe headache Flu-like symptoms Pain or redness in one of both of your breasts Pain, warmth, tenderness or swelling in your legs, especially the calf area Frequent nausea and vomiting Symptoms of depression or anxiety If you experience any of the following, call 911 or go to the nearest Emergency Room. Chest pain Problems breathing Seizure activity Partial or complete paralysis of a body part, slurred speech, weakness or drooping of the face, or a sudden inability to walk or hold your balance Allergies/Adverse Reactions: Allergies Penicillins Allergy (Verified 12/22/18 05:14) Hives Medications to take at Discharge vitamin#30 30 mg iron-10 mg iron-folic acid 1 mg-omg3 capsule 1 tab PO DAILY cap 05/17/18 Please Follow Up With: Tisha Philippe MD - [phone] When: Call to make an appointment with your doctor in 6 weeks. If you had elevated Blood pressure or 4th degree laceration you will need to be seen in 2 weeks. Primary Care Physician: Care Physician,No Primary [Primary Care Provider] - Test Results: Test results from this visit will be discussed in further detail at your follow-up appointment, if applicable.
[2018-12-24 10:00] VITALS: BP 120/75; PULSE 93; RESP 16; TEMP 36.3
--- NOTE | 2018-12-24 11:55 | NURSING ---
1035 Discharged to home via wheelchair to car with baby in lap in carseat. Pt states she is so excited to get to go home and see her 2 year old daughter. States she is ready to be discharged and feels able to care for herself and her baby.
== END 2018-12-24 10:35 | disposition home or self-care (01) | DRG 806 ==
PROVIDERS: Admitting Provider Obstetrics & Gynecology; Referring Provider Obstetrics & Gynecology; Visit Provider Obstetrics & Gynecology
DX: O48.0 Post-term pregnancy (principal); O98.82 Other maternal infectious and parasitic diseases complicating childbirth; Z37.0 Single live birth; Z3A.40 40 weeks gestation of pregnancy; B95.1 Streptococcus, group B, as the cause of diseases classified elsewhere; O99.02 Anemia complicating childbirth; D50.9 Iron deficiency anemia, unspecified; O75.89 Other specified complications of labor and delivery
CPT/HCPCS: 59025; 59050; 84112; 85025; 86850; 86900; 86901; 99218; J7120; G0378

== ENCOUNTER → 2020-06-18 | Outpatient (CLI) | payer OTHER, MEDICAID, SELFPAY ==
[2020-06-18 14:53] VITALS: BMI 28.0
[2020-06-21 12:59] LABS: HPV Reflexed? NOT INDICATED
== END | disposition home or self-care (01) ==
LOC: LABSPEC 16:29
PROVIDERS: Referring Provider Nurse Practitioner Women's Health; Visit Provider Nurse Practitioner Women's Health
DX: Z12.4 Encounter for screening for malignant neoplasm of cervix (principal)
CPT/HCPCS: 88175; G0145

== ENCOUNTER → 2020-07-12 13:54 | Outpatient (CLI) | payer OTHER, MEDICAID, SELFPAY ==
[2020-07-12 13:40] VITALS: BMI 28.0
[2020-07-12 14:45] LABS: hCG Titer Quant., Serum 1038 mIU/mL (1-3)
== END ==
PROVIDERS: Referring Provider Obstetrics & Gynecology; Visit Provider Obstetrics & Gynecology
DX: N92.6 Irregular menstruation, unspecified (principal)
CPT/HCPCS: 36415; 84702

== ENCOUNTER → 2020-08-15 | Outpatient (CLI) | payer OTHER, MEDICAID, SELFPAY ==
[2020-08-15 09:22] VITALS: BMI 28.0
[2020-08-15 13:40] LABS: Amphetamine Urine VISTA NEGATIVE (<1000 ng/mL); Barbiturate Urine VISTA NEGATIVE (< 200 ng/mL); Benzodiazepine Urine VISTA NEGATIVE (< 200 ng/mL); Cocaine Urine VISTA NEGATIVE (< 300 ng/mL); Ecstacy Urine VISTA NEGATIVE (< 500 ng/mL); Methadone Urine VISTA NEGATIVE (< 300 ng/mL); PCP Urine VISTA NEGATIVE (< 25 ng/mL); THC Urine VISTA NEGATIVE (< 50 ng/mL); Vista UDS pH Range 5
[2020-08-17 03:06] LABS: Chlamydia By Nucleic Acid AMP Negative (Negative)
[2020-08-17 10:05] LABS: Gonococcus By Nucleic Acid AMP Negative (Negative)
== END | disposition home or self-care (01) ==
PROVIDERS: Referring Provider Obstetrics & Gynecology; Visit Provider Obstetrics & Gynecology
DX: Z34.90 Encounter for supervision of normal pregnancy, unspecified, unspecified trimester (principal); Z36.89 Encounter for other specified antenatal screening
CPT/HCPCS: 80307; 87086; 87088; 87491; 87591

== ENCOUNTER → 2020-08-19 12:16 | Outpatient (CLI) | payer OTHER, MEDICAID, SELFPAY ==
[2020-08-15 09:22] VITALS: BMI 28.0
[2020-08-19 13:28] LABS: NATERA MAILED SPECIMEN
[2020-08-19 13:33] LABS: Absolute Lymphocyte Count 2.11 X10^3/uL (0.83-4.51); Absolute Neutrophil Count 6.4 X10^3/uL (2.0-7.7); Basophil# 0.04 X10^3/uL; Basophil% 0.4 % (0-1); Eosinophil# 0.21 X10^3/uL; Eosinophils% 2.2 % (0-5); Hematocrit 39.1 % (37-47); Hemoglobin 13.1 g/dL (12.0-15.0); Lymphocyte # 2.11 X10^3/ul (0.83-4.51); Lymphocyte % 22.2 % (19-41); Mean Corp Hgb Conc 33.5 g/dL (32-36); Mean Corpuscular Hgb 28.7 pg (27.0-32.0); Mean Corpuscular Volume 85.7 fL (81-99); Mean Platelet Vol. 9.2 fl (6.2-12.0); Monocyte# 0.75 X10^3/uL; Monocyte% 7.9 % (0-10); NRBC Flagged by Analyzer 0 % (0-5); Neutrophil # 6.39 X10^3/uL (2.7-7.7); Neutrophil % 67.1 % (47-70); Platelet Count 354 K/mm3 (150-450); RBC Distribution Width CV 13.1 % (11.6-14.6); RBC Distribution Width SD 40.5 fl (35.1-43.9); Red Blood Count 4.56 M/mm3 (4.2-5.4); White Blood Count 9.5 K/mm3 (4.4-11.0)
[2020-08-19 14:47] LABS: HIV - WCH Non-Reactive (Nonreactive); Hepatitis B Surface Antigen Non-Reactive (Nonreactive); Hepatitis C Antibody Non-Reactive (Nonreactive); Rubella IgG Reactive (Nonreactive); Syphilis Antibodies Non-reactive
== END ==
PROVIDERS: Referring Provider Obstetrics & Gynecology; Visit Provider Obstetrics & Gynecology
DX: Z34.81 Encounter for supervision of other normal pregnancy, first trimester (principal)
CPT/HCPCS: 36415; 85025; 86703; 86762; 86780; 86803; 86850; 86900; 86901; 87340

== ENCOUNTER → 2020-12-23 13:45 | Outpatient (CLI) | payer OTHER, MEDICAID, SELFPAY ==
[2020-12-23 14:14] LABS: Absolute Neutrophil Count 7.2 X10^3/uL (2.0-7.7); Basophil# 0.02 X10^3/uL; Basophil% 0.2 % (0-1); Eosinophil# 0.23 X10^3/uL; Eosinophils% 2.3 % (0-5); Hematocrit 31.4 % (37-47); Hemoglobin 10.4 g/dL (12.0-15.0); Lymphocyte % 17.9 % (19-41); Mean Corp Hgb Conc 33.1 g/dL (32-36); Mean Corpuscular Hgb 28.7 pg (27.0-32.0); Mean Corpuscular Volume 86.5 fL (81-99); Mean Platelet Vol. 8.9 fl (6.2-12.0); Monocyte# 0.78 X10^3/uL; Monocyte% 7.7 % (0-10); NRBC Flagged by Analyzer 0 % (0-5); Neutrophil # 7.17 X10^3/uL (2.7-7.7); Neutrophil % 71.2 % (47-70); Platelet Count 273 K/mm3 (150-450); RBC Distribution Width CV 13.8 % (11.6-14.6); RBC Distribution Width SD 43.1 fl (35.1-43.9); Red Blood Count 3.63 M/mm3 (4.2-5.4); White Blood Count 10.1 K/mm3 (4.4-11.0)
[2020-12-23 14:27] LABS: Glucose Challenge Gest 1H 50g 83 mg/dL (70-140)
== END ==
PROVIDERS: Referring Provider Nurse Practitioner Women's Health; Visit Provider Nurse Practitioner Women's Health
DX: Z34.92 Encounter for supervision of normal pregnancy, unspecified, second trimester (principal); Z36.89 Encounter for other specified antenatal screening; Z3A.18 18 weeks gestation of pregnancy
CPT/HCPCS: 36415; 82950; 85025

== ENCOUNTER → 2021-02-17 | Outpatient (CLI) | payer OTHER, MEDICAID, SELFPAY | END | disposition home or self-care (01) | LOC: LABSPEC 16:56 | PROVIDERS: Visit Provider Obstetrics & Gynecology | DX: Z34.93 Encounter for supervision of normal pregnancy, unspecified, third trimester (principal) | CPT/HCPCS: 87077; 87081; 87186 ==

== ENCOUNTER 2021-02-28 11:05 | Inpatient (IN) | payer OTHER, MEDICAID, SELFPAY ==
[2021-02-28] VITALS (49 sets, daily range): BP systolic 98–158; BP diastolic 47–79; PULSE 78–203; TEMP 36.8–37.7; O2SAT 82–100; BMI 33.5
[2021-02-28 10:16] LABS: ROM Internal Control Test YES-OK TO RESULT pt. (Internal QC)
[2021-02-28 10:18] LABS: ROM Patient Test POSITIVE (Negative)
[2021-02-28] MEDS: Lactated Ringers 1,000 ML 50 ML IV (12:05)
[2021-02-28 12:19] LABS: Absolute Lymphocyte Count 1.35 X10^3/uL (0.83-4.51); Absolute Neutrophil Count 8.4 X10^3/uL (2.0-7.7); Basophil# 0.03 X10^3/uL; Basophil% 0.3 % (0-1); Eosinophil# 0.14 X10^3/uL; Eosinophils% 1.3 % (0-5); Hematocrit 31.1 % (37-47); Hemoglobin 10.1 g/dL (12.0-15.0); Lymphocyte # 1.35 X10^3/ul (0.83-4.51); Lymphocyte % 12.7 % (19-41); Mean Corp Hgb Conc 32.5 g/dL (32-36); Mean Corpuscular Hgb 27.7 pg (27.0-32.0); Mean Corpuscular Volume 85.4 fL (81-99); Mean Platelet Vol. 8.8 fl (6.2-12.0); Monocyte# 0.72 X10^3/uL; Monocyte% 6.7 % (0-10); NRBC Flagged by Analyzer 0 % (0-5); Neutrophil # 8.36 X10^3/uL (2.7-7.7); Neutrophil % 78.3 % (47-70); Platelet Count 226 K/mm3 (150-450); RBC Distribution Width CV 14.5 % (11.6-14.6); RBC Distribution Width SD 45.3 fl (35.1-43.9); Red Blood Count 3.64 M/mm3 (4.2-5.4); White Blood Count 10.7 K/mm3 (4.4-11.0)
--- NOTE | 2021-02-28 12:57 | HP.PCM.OB_ITS ---
HPI - General General Date of Admission: 02/28/21 HPI Narrative ANNMARIE LEDEZMA, is a 25 @ 37 weeks 4 days who presents today with leaking fluid since Wednesday after a bath. She denies vaginal bleeding or further leaking fluid, however she started having cramping today so decided to come in and get checked out. Maternal Data Information DELANEY Calculator Estimated Delivery Date Method Current WG Current Estimate 03/17/21 LMP (Certain) 37w 4d PFSH PFSH Medical History (Updated 02/28/21 @ 12:[address] Debby Trevino, DO) Anxiety Depression Lupus Positive GBS test depression Rheumatoid arthritis Home Medications famotidine 20 mg tablet 20 mg PO BID PRN #60 tab 08/06/20 [Rx Last Taken Unknown] vitamin#30 30 mg iron-10 mg iron-folic acid 1 mg-omg3 capsule cap PO 09/12/20 [History Last Taken Unknown] aspirin 81 mg chewable tablet 81 mg PO DAILY 10/14/20 [History Last Taken Unknown] certolizumab pegol 200 mg SUBCUT Q2W 10/14/20 [History Last Taken Unknown] hydroxychloroquine 200 mg tablet 200 mg PO DAILY 10/14/20 [History Last Taken Unknown] fluoxetine 20 mg capsule 20 mg PO DAILY #30 cap 10/29/20 [Rx Last Taken Unknown] methylprednisolone 4 mg tablets in a dose pack See Rx Instructions PO PER PKG DIR #21 tab 02/12/21 [Rx Last Taken Unknown] cyclobenzaprine 5 mg tablet 5 mg PO QHS PRN #14 tab 02/26/21 [Rx Last Taken Unknown] Allergy/AdvReac Type Severity Reaction Status Date / Time Penicillins Allergy Hives Verified 02/28/21 09:27 Social History adopted: No household members: spouse number of children: 2 current occupational status: unemployed pets and animals: Yes pets and animals: dog(s) Smoking Status: Never smoker alcohol intake: never substance use type: does not use caffeine: Yes what type of physical activity do you participate in: walking seatbelt use: always do you feel safe at home: Yes 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 Date Name GA/Weeks Outcome Route Bth Weight Infant Gen Labor Lgth Anesthesia Del Locatn Provider FOB 11/20/16 Stephanie 40 live - full term 7# 14oz Female 12 ep idural RUBEN Stephen 12/22/18 Bernie 40 live - full term 8# 11oz Female non e [facility] RUBEN Delivery Date: 11/20/16 induced; 2nd degree Kirstie Han Delivery Date: 12/22/18 precipitous delivery Paula Marshall Visit Details Expected Delivery Route/Plan Labor Preferences- CB/BF classes: no labor support person: Stephen labor intervention preferences: pain management options preferred: limited intervention if needed cut cord/dad catch: yes : yes PP control planned: discussed. Wants IUD discussed possible routes of delivery and associated risks: [] special requests: [] Plans covid status: counseled regarding risk of covid in vs vaccination and considering vaccination flu vaccine: discussed tdap vaccine: rhogam: NA LARC form signed: yes movement and labor precautions reviewed. Problem list reviewed and updated with the most current plan of care details and appropriate orders placed. Relevant counseling for the gestational age provided. Continue routine care and follow up unless otherwise noted in visit notes/problem list details OB Flowsheet Initial Weight: 175 lb Date -?-?-?-?-?-?-?-?-?-?-?-?- EGA Weight BP Urine Prot -?-?-?-?-?-?-?-?-?-?-?-?- Glucose FHR FuHt Pres Dilation -?-?-?-?-?-?-?-?-?-?-?-?- Effaced St Visit Note 08/15/20 -?-?-?-?-?-?-?-?-?-?-?-?- 9w 3d 174 lb (-16 oz) 136/80 -?-?-?-?-?-?-?-?-?-?-?-?- 170 -?-?-?-?-?-?-?-?-?-?-?-?- SM- CRL 2.3 cm c ons with LMP 09/12/20 -?-?-?-?-?-?-?-?-?-?-?-?- 13w 3d 173 lb (-2 lb) 110/80 Negative -?-?-?-?-?-?-?-?-?-?-?-?- Negative 160 -?-?-?-?-?-?-?-?-?-?-?-?- SM- `no vb cramp ing 10/03/20 -?-?-?-?-?-?-?-?-?-?-?-?- 16w 3d 176 lb 6 oz (+1 lb 6 oz) 132/76 Negative -?-?-?-?-?-?-?-?-?-?-?-?- Negative 161 -?-?-?-?-?-?-?-?-?-?-?-?- -work for FHT check. Just feeling nervous. FHT easily found. Anatomy US MFM ordered. 10/14/20 -?-?-?-?-?-?-?-?-?-?-?-?- 18w 0d 179 lb (+4 lb) 122/82 Negative -?-?-?-?-?-?-?-?-?-?-?-?- Negative 155 -?-?-?-?-?-?-?-?-?-?-?-?- SM- increased an xiety. SM- increased anxiety. discu ssed changing meds and lupus meds 10/29/20 -?-?-?-?-?-?-?-?-?-?-?-?- 20w 1d 182 lb 2 oz (+7 lb 2 oz) 128/60 -?-?-?-?-?-?-?-?-?-?-?-?- 133 -?-?-?-?-?-?-?-?-?-?-?-?- -doing well on prozac 20mg and needs refill. Saw MFM today and told dilated kidneys and will have repeat US. Wait on report and we will call her. No VB, LOF. Feeling some movement. 11/25/20 -?-?-?-?-?-?-?-?-?-?-?-?- 24w 0d 189 lb (+14 lb) 126/64 Negative -?-?-?-?-?-?-?-?-?-?-?-?- Negative 140 -?-?-?-?-?-?-?-?-?-?-?-?- SM- doing well r eviewed PL and us. no vb lof good fm no reuglar ctx 12/23/20 -?-?-?-?-?-?-?-?-?-?-?-?- 28w 0d 194 lb 6 oz (+19 lb 6 oz) 106/60 Trace -?-?-?-?-?-?-?-?-?-?-?-?- Negative 146 28 -?-?-?-?-?-?-?-?-?-?-?-?- MH-No VB, LOF. G ood FM. 28 wk labs:anemia and start FE. Normal glucose. Not feeling well from glucose drink. Would like tdap and flu vaccine next visit. 01/06/21 -?-?-?-?-?-?-?-?-?-?-?-?- 30w 0d 197 lb (+22 lb) 110/62 Trace -?-?-?-?-?-?-?-?-?-?-?-?- Negative 143 30 -?-?-?-?-?-?-?-?-?-?-?-?- -No VB, LOF. G ood FM. Taking Fe daily. Growth US with MFM 01/2001/20/21 -?-?-?-?-?-?-?-?-?-?-?-?- 32w 0d 200 lb (+25 lb) 130/80 Negative -?-?-?-?-?-?-?-?-?-?-?-?- Negative 135 32 -?-?-?-?-?-?-?-?-?-?-?-?- SM- doing well n o flares, no vb lof good fm nore gular ctx 01/27/21 -?-?-?-?-?-?-?-?-?-?-?-?- 33w 0d 200 lb 2 oz (+25 lb 2 oz) 120/60 Negative -?-?-?-?-?-?-?-?-?-?-?-?- Negative 140 -?-?-?-?-?-?-?-?-?-?-?-?- MH-NST only reac tive 02/03/21 -?-?-?-?-?-?--?-?-?-?-?-?- 34w 0d 203 lb (+28 lb) 124/84 -?-?-?-?-?-?-?-?-?-?-?-?- 140 -?-?-?-?-?-?-?-?-?-?-?-?- SM- no vb lof go od fm no regular ctx 02/11/21 -?-?-?-?-?-?-?-?-?-?-?-?- 35w 1d 203 lb (+28 lb) 122/82 Negative -?-?-?-?-?-?-?-?-?-?-?-?- Negative -?-?-?-?-?-?-?-?-?-?-?-?- 02/17/21 -?-?-?-?-?-?-?-?-?-?-?-?- 36w 0d 202 lb (+27 lb) 114/60 Negative -?-?--?-?-?-?-?-?-?-?-?-?- Negative 140 2 -?-?-?-?-?-?-?-?-?-?-?-?- SM- no vb lof go od fm no regular ctx gbs neg SM- no vb lof good fm no reg ular ctx gbs collected 02/26/21 -?-?-?-?-?-?-?-?-?-?-?-?- 37w 2d 204 lb 6 oz (+29 lb 6 oz) 204 lb (+29 lb) -?-?-?-?-?-?-?-?-?-?-?-?- 143 37 -?-?-?-?-?-?-?-?-?-?-?-?- JV- no lof, vagi nal bleeding, or dec fm. pt states that MFM told her to be delivered between 38-39 weeks, however documentation does not prove this. will reach out to MFM and find out. in meantime, flexeril for pain and to help sleep (sunny interacts with her meds) 02/28/21 -?-?-?-?-?-?-?-?-?-?-?-?- 37w 4d 203 lb 4 oz (+28 lb 4 oz) 130/70 Negative -?-?-?-?-?-?-?-?-?-?-?-?- Negative 142 37 1 -?-?-?-?-?-?-?-?-?-?-?-?- 30 -3 JV- pt pre sents with complaint that a week ago she was taking a bath and when she stood up felt water release from her vagina. She then thought that maybe her fundal height was low today and she had some cramping. ROM+ collected. 02/28/21 -?-?-?-?-?-?-?-?-?-?-?-?- 37w 4d 201 lb 11.567 oz (+26 lb 11.567 oz) 126/73 -?-?-?-?-?-?-?-?-?-?-?-?- -?-?-?-?-?-?-?-?-?-?-?-?- NST FHR Rate Baby A Baseline: 150 Variability:: Minimal Accelerations:: 15 x 15 Decelerations:: None NST Reactive:: Yes FHR Category:: Category I ROS Constitutional Constitutional: Denies change in weight, fatigue, fever(s), headache(s), poor appetite or weakness Eyes Eyes: Denies blurry vision, change in vision, seeing flashes or spots in vision ENT HEENT: Denies dizziness, headache(s), loss taste/smell or sore throat Cardiovascular Cardiovascular: Denies chest pain, dizziness, dyspnea, irregular heart rhythm, leg edema, palpitations, rapid heart rate or vomiting Respiratory/Chest Respiratory/Chest: Denies chest tightness, cough, dyspnea or breast pain Gastrointestinal Gastrointestinal: Denies abdominal pain, anorexia, constipation, cramping, diarrhea, hemorrhoids, vomiting or weight changes Genitourinary Genitourinary: Denies dysuria, flank pain, genital lesions, genital pain, urinary frequency or urinary urgency Musculoskeletal Musculoskeletal: Denies back pain, difficulty walking, joint pain, limited range of motion, muscle cramps or numbness Integumentary Integumentary: Denies lesions or unusual bruising Neurologic Neurologic: Denies abnormal movements, abnormal speech, dizziness, numbness, seizure-like activity or syncope Psychiatric Psychiatric: Denies anxiety, behavioral changes, change in appetite, change in libido, cognitive impairment, confusion, depression, difficulty concentrating, hallucinations or suicidal thoughts Endocrine Endocrinology: Denies excessive sweating, polydipsia or polyuria Hematologic/Lymphatic Hematologic/Lymphatic: Denies easy bleeding, easy bruising or lymphadenopathy Allergic/Immunologic Allergic/Immunologic: Denies itchy eyes, lip swelling, seasonal rhinorrhea, rhinitis, throat swelling, tongue swelling, eczemia, wheezing or asthma Vital Signs Vital Signs Vital Signs: 02/28/21 11:26 02/28/21 11:55 02/28/21 11:56 Temperature 98.4 F Temperature Source Temporal Pulse Rate 110 H 203 H Blood Pressure 126/73 H BP Systolic 126 BP Diastolic 73 Pulse Ox 99 99 02/28/21 12:01 Temperature Temperature Source Pulse Rate 107 H Blood Pressure BP Systolic BP Diastolic Pulse Ox 98 Weight Weight: 201 lb 11.567 oz Body Mass Index (BMI) 33.5 Physical Exam Const alert, oriented x3, no apparent distress and healthy appearing General Appearance: cooperative; Negative for anxious HEENT normocephalic Face and Sinus: normal facial exam Eyes EOMs intact bilaterally and no scleral icterus General Eye: normal appearance of both eyes Neck full ROM and supple Lymph Lymphatic: no lymphadenopathy noted Chest Chest: abnormal inspection of the chest Resp normal respiratory effort Effort and Inspection: able to speak in complete sentences Cardio regular rate GI soft to palpation and non-tender Inspection: gravid Palpation: soft; Negative for tender external exam normal Amniotic Fluid: ROM+plus positive + and other cx is 1/thick/-4 ultrasound showed vtx presentation and MUMTAZ 17 Back/Spine no CVA tenderness Extremity normal to inspection, full ROM and no clubbing, cyanosis or edema General Extremity: Negative for calf tenderness or edema Skin Lesions: no lesions Rashes: no rashes Psych mental status grossly normal Labs Labs Labs: Blood Type A POSITIVE Antibody Screen NEGATIVE Hct 31.1 % (37-47) L Hgb 10.1 g/dL (12.0-15.0) L Obstetrics US Syphilis Total Ab Non-reactive Rubella IgG Antibody Reactive (Nonreactive) Hep Bs Antigen Non-Reactive (Nonreactive) Neisseria gonorrhoeae DNA (EDGAR) Negative (Negative) HIV 1&2 Antibody Non-Reactive (Nonreactive) C.trachomatis DNA (PCR) Negative (Negative) Glucose 1 Hr 50 gm 83 mg/dL (70-140) Group B Strep DNA Negative (Negative) Rhogam given: No Miscellaneous Test Assessment & Plan (1) SROM (spontaneous rupture of membranes): (2) Low grade squamous intraepithelial lesion (LGSIL): COMMENT: plan pap PP (3) Depression with anxiety: COMMENT: prozac 20 mg. counseling encouraged. Stopped med >1 wk ago and doing well (4) Supervision of other normal : COMMENT: PRR DELANEY 03/17/21 alexi Dobson PC: Bernie Brown. Spouse Stephen (5) : QUALIFIERS: Weeks of gestation: 37 weeks Qualified Code(s): Z3A.37 - 37 weeks gestation of COMMENT: NIPT low risk. declined carrier and ntd screening. (6) Rheumatoid arthritis: QUALIFIERS: Rheumatoid arthritis location: unspecified site Rheumatoid factor presence: with rheumatoid factor Qualified Code(s): M05.9 - Rheumatoid arthritis with rheumatoid factor, unspecified COMMENT: OK per infantry weapons crewmember to continue cimzia, mfm recommends wkly MUMTAZ/NST starting 32 wks with us and growth q4 wks with mfm (7) Hx of precipitous labor and deliveries, antepartum: (8) History of COVID-19: COMMENT: Nov 2019; taking ASA (9) Lupus (systemic lupus erythematosus): QUALIFIERS: Systemic lupus erythematosus type: unspecified Systemic lupus erythematosus organ involvement: unspecified Qualified Code(s): M32.9 - Systemic lupus erythematosus, unspecified COMMENT: Consider 39 wk delivery, s/p MFM consult. weekly nst/mumtaz after 32 and deliver at 39. 81 mg ASA daily. antibody testing done by infantry weapons crewmember. (10) Pyelectasis of fetus on ultrasound: COMMENT: treatment tarrs (11) Anemia in preg-unspec: QUALIFIERS: Trimester: second trimester Qualified Code(s): O99.012 - Anemia complicating , second trimester COMMENT: add FE (12) Positive GBS test: COMMENT: treat in labor- HAS PCN ALLERGY PLAN: Patient presents IOL, plan management for with cytotec then pitocin. Pain management: plans epidural. GBS positive- allergic to pcn, will need vancomycin. Management of any complications: pyelectisis - pt will follow up with treatment tarrs after . I have reviewed the [facility] and made any clinically relevant updates.
[2021-02-28] MEDS: miSOPROStol 25 MCG TABLET PO (14:15)
[2021-02-28] MEDS: 0.9% Saline Lock 10 ML Syringe IV ×2 (14:29→21:52)
[2021-02-28] MEDS: DiphenhydrAMINE 50 MG/ML Syringe IV ×2 (14:29→21:52)
[2021-02-28] MEDS: Lactated Ringers 500 ML 999 ML IV ×2 (18:50→21:05)
[2021-02-28] MEDS: Lactated Ringers 1,000 ML 200 ML IV (19:27)
[2021-02-28] MEDS: fentaNYL-bupivacaine (epidural) 100 ML BAG EPIDURAL (20:05)
[2021-02-28] MEDS: Oxytocin 30 units/NS 500 ml 30 UNITS/500 ML IV.SOLN IV (21:50)
[2021-03-01] VITALS (37 sets, daily range): BP systolic 91–130; BP diastolic 50–75; PULSE 8–116; RESP 14–18; TEMP 36.1–37.3; O2SAT 84–100
[2021-03-01] MEDS: fentaNYL-bupivacaine (epidural) 100 ML BAG EPIDURAL ×2 (00:16→04:44)
[2021-03-01] MEDS: 0.9% Saline Lock 10 ML Syringe IV ×2 (00:27→06:26)
[2021-03-01] MEDS: Lactated Ringers 1,000 ML 200 ML IV ×2 (01:42→06:24)
[2021-03-01] MEDS: Acetaminophen 500 MG Tablet PO (05:35)
[2021-03-01] MEDS: DiphenhydrAMINE 50 MG/ML Syringe IV (06:31)
[2021-03-01] MEDS: Lactated Ringers 500 ML 999 ML IV (07:06)
[2021-03-01] MEDS: Oxytocin 30 units/NS 500 ml 30 UNITS/500 ML IV.SOLN 334 UNITS IV (09:10)
--- NOTE | 2021-03-01 09:27 | OP.PCM_ITS ---
Assessment & Plan (1) SROM (spontaneous rupture of membranes): (2) : QUALIFIERS: Weeks of gestation: 37 weeks Qualified Code(s): Z3A.37 - 37 weeks gestation of COMMENT: NIPT low risk. declined carrier and ntd screening. (3) Rheumatoid arthritis: QUALIFIERS: Rheumatoid arthritis location: unspecified site Rheumatoid factor presence: with rheumatoid factor Qualified Code(s): M05.9 - Rheumatoid arthritis with rheumatoid factor, unspecified COMMENT: OK per auto service writer to continue cimzia, mfm recommends wkly MUMTAZ/NST starting 32 wks with us and growth q4 wks with mfm (4) History of COVID-19: COMMENT: Nov 2019; taking ASA (5) Lupus (systemic lupus erythematosus): QUALIFIERS: Systemic lupus erythematosus type: unspecified Systemic lupus erythematosus organ involvement: unspecified Qualified Code(s): M32.9 - Systemic lupus erythematosus, unspecified COMMENT: Consider 39 wk delivery, s/p MFM consult. weekly nst/mumtaz after 32 and deliver at 39. 81 mg ASA daily. antibody testing done by auto service writer. (6) Pyelectasis of fetus on ultrasound: COMMENT: treatment center Maternal Data Information DELANEY Calculator Estimated Delivery Date Method Current WG Current Estimate 03/17/21 LMP (Certain) 37w 5d Vaginal Delivery Maternal Presentation Maternal Presentation: Spontaneous Rupture of Membranes Type of Induction: Cervidil and Pitocin Operative Information Date of Procedure: 03/01/21 Pre-Operative Diagnosis: 37 weeks PROM, Post-Operative Diagnosis: 37 weeks PROM, Surgery / Procedure Performed: Spontaneous Vaginal Delivery Type of Anesthesia: Epidural Estimated Blood Loss: 200cc Findings Description of Procedure: Patient began pushing and delivered the head in the OP presentation. The head was delivered atraumatically The anterior and posterior shoulders delivered without complication followed by the rest of the infant and the was placed on the maternal abdomen. Delayed cord clamping was employed for approximately 60 seconds. Cord was clamped and cut and gentle traction was applied to the cord and the placenta delivered spontaneously immediately following it was noted to be intact with three-vessel cord. The perineum and vagina were inspected and noted to have no laceration. EBL was 2 00cc. Patient and infant tolerated delivery well. Amniotic Membrane Rupture Type: Spontaneous Amniotic Fluid Description: Clear Placental Delivery Description: Spontaneous Placenta Disposition: [facility] Cord Vessel Description: 3 Vessels Cord Entanglement: None Infant A Gender: Male (1 minute): 8 (5 minute): 9 Delayed Cord Clamping: Yes Post Vaginal Delivery Medications Given After Delivery: IV Pitocin Episiotomy Description: None Laceration: None Complication Complications: None Multi Select Codes Urinary/Genital Urinary/Genital CPT Codes: 35748 Vaginal Delivery [facility]
--- NOTE | 2021-03-01 09:31 | PCM.DC ---
Discharge Instructions Diet Discharge Diet: No restrictions Activity Discharge Activity: Return to Normal Activity, May Not Drive (while taking narcotic pain medications.) and May Shower May resume sexual activity in: 4-6 weeks Dressing / Incision Call your doctor if your incision/area has: Continuous Slow Oozing, Sudden Increased Bleeding, Increased Pain/ Swelling, Increased Redness and Foul Smelling Discharge Follow Up Care Please Follow Up With: Debby Trevino DO When: Call [phone] to make an appointment with your doctor in 6 weeks. If you had elevated blood pressure or 4th degree laceration, you will need to be seen in 2 weeks. Test Results: Test results from this visit will be discussed in further detail at your follow-up appointment, if applicable. Discharge Plan Admission Admit Date/Time: 02/28/21 11:05 Primary Reason for Your Visit: Vaginal delivery Attending Provider: Debby Trevino Primary Care Provider: Care Physician,Meggan Primary Discharge Orders/Prescriptions Prescriptions: New docusate sodium [Colace] 100 mg capsule 100 mg PO DAILY 14 Days Qty: 14 RF: 0 ibuprofen 800 mg tablet 800 mg PO Q8H PRN (Reason: pain) 7 Days Qty: 30 RF: 0 Continued PNV #[id number] 30 mg iron-10 mg iron-1 mg capsule 2 cap PO DAILY RF: 0 hydroxychloroquine [Plaquenil] 200 mg tablet 200 mg PO BID RF: 0 famotidine [Pepcid] 20 mg tablet 20 mg PO DAILY RF: 0 Discontinued aspirin 81 mg tablet,chewable 81 mg PO DAILY RF: 0 cyclobenzaprine 5 mg tablet 5 mg PO QHS PRN (Reason: pain (scale score 4-6)) Qty: 14 RF: 0 methylprednisolone [Medrol (Tres)] 4 mg tablets,dose pack See Rx Instructions PO PER PKG DIR RF: 0 Referrals / Follow Up: Care Physician,No Primary [Primary Care Provider] - Disposition Disposition (needs filled in before D/C Order can be placed): Home, Self Care
[2021-03-01] MEDS: Prenatal Vits Tablet 1 TABLET PO (13:11)
[2021-03-01] MEDS: Hydroxychloroquine 200 MG Tablet PO ×2 (13:11→21:51)
--- NOTE | 2021-03-01 16:39 | CM.ED ---
Addendum entered by Veronika Page 03/01/21 16:56: apgars 8/9 Original Note: SW Note Referral Source: carton forming machine adjuster Reason: History of anxiety, depression and PPD SW met with patient's RN, Jah. She reports patient and fob are doing well with . No concerns voiced. Mom: Hali Herzog PNC: Jose Martin Control: IUD Baby: Bronson Parker 03/01/21 Weight: 7# 3 ounces Classification Counselor: Dr. Harvey Breast feeding which patient reports is going great. Patient's other children: Stephanie age 4 and Bernie age 2 Housing: Patient, FOB and their 3 children reside in a house in [place] Transportatoin: No issues with access to transportation Supplies: Patient reports she has all nb supplies Support: FOB is his main support. Patient said that her mom and fob's mom reside in [place] and are supportive. Patient said that fob and patient's mother's both have jobs that they can do work at home so they are available for support. Education Level: Patient graduated from high school. No learning issues or delays. Patient is working on line to complete her bachelors degree in psychology. Patient said that she enjoys working on her degree because she learns things about herself that she can use in daily life. Patient said that her degree is still a work in progress. 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 Agency Involvement: Patient receives food stamps, [facility] insurance ([facility]) and WIC. Patient is not linked with [facility] and declined referral. Patient said that she went to counseling in the past, before she had children, at [place] and [place]. Patient said that if she needs assistance with PPD she will go to counseling as she enjoyed it in the past. No past CSB or legal issues. FOB: Stephen Time together: 5 years Involved at : Yes Employment: [employer] in [place]. FOB stated that he will take 1 week of vacation then he will see how it is going with patient and the nb and go from there. FOB MH/AOD and DV: FOB reports he has anxiety related to health issues. He reports being concerned about his and children and their health and now COVID. Patient said that he was on Lexapro in the past however, it was losing it effectiveness so now he is taking Paxil, which is helpful. Patient is prescribed his medication by his PCP. Maternal MH History: Patient reports history of PPD with her oldest child and prescribed Zoloft which was helpful. Patient said that after her second child she took Celexa but it was not helpful. Patient said that at 15 weeks during this she had anxiety so she spoke to MD who prescribed her Prozac. Patient said that she took the Prozac for one week and then went to her high risk MD who discussed the weaning process for Prozac with the nb she she discontinued Prozac. Patient said that she tried to control her anxiety by focusing on me time and pay attention to myself. Patient said that she has never had psychiatric hospitalization and denied SI/HI. Patient said that she enjoyed counseling she had in the past at [facility], which was a long time ago and she stated it was over 5 years ago that she had counseling. Patient said that she knows that her MD, Jose Martin will reach out and check up on her and ask her how I am really doing. Patient said that she is open to counseling if she has symptoms of PPD. Patient was educated on PPD, shaken baby syndrome and safe sleeping. Patient denied any AOD use. Patient denied smoking. Patient said that she is comfortable taking the nb home at discharge and her and fob voiced no concerns or issues. SW updated RN that plan is for discharge home for nb and patient. Plan: Home Veronika DANIELS
[2021-03-01] MEDS: Acetaminophen 500 MG Tablet 1000 MG PO (19:09)
[2021-03-02] MEDS: Ketorolac 10 MG Tablet PO (00:52)
[2021-03-02 02:42] VITALS: BP 126/70; PULSE 83
[2021-03-02 03:04] VITALS: BP 126/70; PULSE 83; RESP 16; TEMP 37.2
[2021-03-02] MEDS: Acetaminophen 500 MG Tablet 1000 MG PO (08:03)
[2021-03-02 09:37] VITALS: BP 118/69; PULSE 86
[2021-03-02 09:39] VITALS: BP 118/69; PULSE 86; RESP 16; TEMP 36.7; O2SAT 97
[2021-03-02] MEDS: Hydroxychloroquine 200 MG Tablet PO (10:38)
--- NOTE | 2021-03-02 11:28 | PCM.PN.OB ---
Subjective Subjective Patient doing well without complaints. Tolerating PO. Ambulating and voiding without difficulty. Feeding well. Denies chest pain, shortness of breath, calf pain/swelling, fevers, chills, lightheadedness. Objective Data Objective Data Vital Signs: Vital Signs Temp Pulse Resp BP Pulse Ox 98.1 F 86 16 118/69 97 03/02/21 09:39 03/02/21 09:39 03/02/21 09:39 03/02/21 09:39 03/02/21 09:39 Oxygen Delivery Method Room Air Weight: 201 lb 11.567 oz Body Mass Index (BMI) 33.5 Intake & Output: Intake and Output for Last 24 Hours 02/28/21 03/01/21 03/02/21 23:59 23:59 23:59 Intake Total 2706.80 / 3326.80 4902.13 / 4902.13 Output Total 1200 / 1600 2200 / 2200 Balance 1506.80 / 1726.80 2702.13 / 2702.13 Lab / Micro Data Result Diagrams: 02/28/21 12:05 Micro: Microbiology 02/28/21 12:05 Nasal Secretion SARS-CoV-2 Antigen (Rapid) - Final ROS Constitutional Constitutional: Denies chills, fatigue, fever(s), poor appetite or weakness Eyes Eyes: Denies blurry vision, change in vision, seeing flashes or spots in vision ENT HEENT: Denies dizziness, headache(s), loss taste/smell or sore throat Cardiovascular Cardiovascular: Denies chest pain, dizziness, dyspnea, irregular heart rhythm, palpitations or rapid heart rate Respiratory/Chest Respiratory/Chest: Denies chest tightness, cough, dyspnea or breast pain Gastrointestinal Gastrointestinal: Denies abdominal pain, constipation or vomiting Genitourinary Genitourinary: Denies dysuria or flank pain Musculoskeletal Musculoskeletal: Denies difficulty walking, joint pain, limited range of motion or numbness Neurologic Neurologic: Denies abnormal movements, abnormal speech, dizziness, numbness, seizure-like activity or syncope Psychiatric Psychiatric: Denies anxiety, behavioral changes, change in appetite, confusion, depression or suicidal thoughts Physical Exam Const alert, oriented x3 and no apparent distress General Appearance: cooperative and comfortable Resp normal respiratory effort Cardio regular rate GI normal to inspection, nondistended, normoactive bowel sounds GI Narrative: uterus is firm below umbilicus Palpation: soft Bimanual Exam - Adnexa, Other: Negative for cul-de-sac fullness Back/Spine no CVA tenderness and thoraco-lumbar ROM normal Extremity normal to inspection, no clubbing, cyanosis or edema, no calf tenderness and no pedal edema Psych mental status grossly normal, thought process normal, cooperative, affect normal, speech normal, activity/motor behavior normal, denies homicidal ideation and denies suicidal ideation Assessment & Plan (1) SROM (spontaneous rupture of membranes): (2) Supervision of other normal : COMMENT: PRR DELANEY 03/17/21 [facility]: Bernie Brown. Spouse Stephen (3) Pyelectasis of fetus on ultrasound: COMMENT: treatment center PLAN: s/p PPD #1 1. routine post delivery care 2. breast feeding- support given 3. rh positive 4. rubella immune 5. pt is anxious about the baby's pyelectasis and new hypospadias- to see urology this week. starting zoloft and buspar as needed 6. dc to home today
[2021-03-02 13:01] VITALS: BP 120/71; PULSE 82; RESP 16; TEMP 37
[2021-03-02 13:02] VITALS: BP 120/71; PULSE 82
--- NOTE | 2021-03-06 18:34 | NURSING ---
Attempted follow up phone call. No answer and no voicemail setup to leave a message
== END 2021-03-02 15:25 | disposition home or self-care (01) | DRG 807 ==
LOC: WP 11:16
PROVIDERS: Admitting Provider Obstetrics & Gynecology; Referring Provider Obstetrics & Gynecology; Visit Provider Obstetrics & Gynecology
DX: O99.824 Streptococcus B carrier state complicating childbirth (principal); Z37.0 Single live birth; M32.9 Systemic lupus erythematosus, unspecified; M05.9 Rheumatoid arthritis with rheumatoid factor, unspecified; F41.9 Anxiety disorder, unspecified; D64.9 Anemia, unspecified; Z20.822 Contact with and (suspected) exposure to COVID-19; O99.344 Other mental disorders complicating childbirth; Z79.82 Long term (current) use of aspirin; Z79.899 Other long term (current) drug therapy; Z86.16 Personal history of COVID-19; Z3A.37 37 weeks gestation of pregnancy; O99.02 Anemia complicating childbirth; O99.892 Other specified diseases and conditions complicating childbirth
CPT/HCPCS: 59025; 59050; 76815; 84112; 85025; 86850; 86900; 86901; 87426; 99218; J7040; J7120; 90686; A4216; G0378; J2405

== ENCOUNTER → 2021-09-05 | Outpatient (CLI) | payer OTHER, MEDICAID, SELFPAY ==
[2021-09-11 15:02] LABS: HPV Reflexed? NOT INDICATED
== END | disposition home or self-care (01) ==
LOC: LABSPEC 10:00
PROVIDERS: Visit Provider Nurse Practitioner Women's Health
DX: Z12.4 Encounter for screening for malignant neoplasm of cervix (principal)
CPT/HCPCS: 88175; G0145

== ENCOUNTER → 2023-07-02 | Outpatient (CLI) | payer MEDICAID, SELFPAY ==
--- NOTE | 2023-07-02 15:49 | US_ITS ---
INDICATION: AUB/IUD placement EXAMINATION: Ultrasound US Pelvis Non OB Complete With Transvaginal Imaging TECHNIQUE: Transabdominal and transvaginal pelvic ultrasound was performed. Grayscale, spectral waveform, and color flow Doppler evaluation of the adnexa. COMPARISON: FINDINGS: UTERUS: Retroverted. The uterus measures 8.7 x 5.2 x 5.2 cm. There is no uterine mass. An IUD is noted. The endometrial stripe measures 7.7 mm in AP diameter with mild endometrial fluid noted. RIGHT OVARY: 2.8 x 1.6 x 1.9 cm. Non-enlarged, normal echogenicity. There is normal arterial inflow and venous outflow present in the right ovary. LEFT OVARY: 2.9 x 2.7 x 3.8 cm. There is a 2.7 cm cystic nodule. There is normal arterial inflow and venous outflow present in the left ovary. FREE FLUID: Mild. US/Pelvic w/ Transvaginal IMPRESSION: Retroverted uterus containing an IUD. Mild endometrial fluid. Left ovarian cyst. Mild pelvic fluid. Electronically Signed: Matthieu James DO at 20:14 EDT Reading Location ID and State: [facility] / [place] Tel [phone], Service support ,
== END | disposition home or self-care (01) ==
LOC: US 15:47
PROVIDERS: Referring Provider Obstetrics & Gynecology; Visit Provider Obstetrics & Gynecology
DX: Z30.09 Encounter for other general counseling and advice on contraception (principal); N93.9 Abnormal uterine and vaginal bleeding, unspecified
CPT/HCPCS: 76830; 76856

== ENCOUNTER → 2023-11-23 | Outpatient (CLI) | payer MEDICAID, SELFPAY | END | disposition home or self-care (01) | PROVIDERS: PCP Nurse Practitioner Family; Referring Provider Nurse Practitioner Family; Visit Provider Nurse Practitioner Family | DX: R05.3 Chronic cough (principal) | CPT/HCPCS: 94060; 94726; 94729 ==